=== PATIENT | male | born 1990 | race Caucasian/White ===

== ENCOUNTER 2016-12-25 02:10 | Day surgery (SDC) | payer OTHER ==
[~2016-12-25] VITALS: Ht 175.3 cm; Wt 89.9 kg
[2016-12-25 04:59] LABS: BASO # 0.1 10^3/uL (0.0-0.2); BASO % 0.3 % (0.0-1.0); EOS # 0.1 10^3/uL (0.0-0.50); EOS % 0.4 % (0.0-3.0); IMMATURE GRANULOCYTE % 0.5 % (0-0); LYMPH # 1.1 10^3/uL (1.5-6.5); LYMPH % 7.4 % (24.0-44.0); MEAN CORPUSCULAR HEMOGLOBIN 31.6 pg (27.0-33.0); MEAN CORPUSCULAR VOLUME 92.7 fl (80.0-96.0); MONO % 6.5 % (0.0-5.0); NEUTROPHILS # 13.2 10^3/uL (1.8-7.7); NEUTROPHILS % 84.9 % (36.0-66.0); PLATELET COUNT, AUTOMATED 296 10^3/uL (150-450); RED CELL DISTRIBUTION WIDTH 11.9 % (11.5-14.5); WHITE BLOOD COUNT 15.5 10^3/uL (4.0-10.0)
[2016-12-25] MEDS ORDERED: KETOROLAC 30 MG/ML VIAL (J1885) IV ONE (05:00)
[2016-12-25] MEDS ORDERED: MORPHINE 4 MG/ML 1ML SYRINGE IV ONE (05:00)
[2016-12-25] MEDS ORDERED: NS 1,000 ML IV ONE (05:00)
[2016-12-25 05:01] LABS: ANION GAP 6 MEQ/L (8-16); BLOOD UREA NITROGEN 19 MG/DL (7-18); CALCIUM LEVEL 9.3 MG/DL (8.5-10.1); CARBON DIOXIDE LEVEL 29 MEQ/L (21-32); CHLORIDE LEVEL 106 MEQ/L (98-107); CREATININE FOR GFR 1.28 MG/DL (0.70-1.30); GLOMERULAR FILTRATION RATE > 60.0 (>60); GLUCOSE, FASTING 105 MG/DL (70-105); POTASSIUM SERUM 4.6 MEQ/L (3.5-5.1); SODIUM LEVEL 141 MEQ/L (136-145)
--- NOTE | 2016-12-25 06:40 | REPUSA ---
CLINICAL HISTORY: Right-sided pain. TECHNIQUE: Multiple axial and coronal CT images were obtained through the abdomen and pelvis without administration of oral or IV contrast material. COMMENTS: Comparison to prior exam performed on 05/10/2010. The liver is of uniform attenuation without mass or defect. There is no intra or extrahepatic biliary ductal dilatation. The spleen is normal. The gallbladder is within normal limits. The pancreas is of normal contour and attenuation characteristics. There is no evidence of adrenal mass. 5.5 mm obstructing stone on the right is at L3. Moderate right hydroureteronephrosis. 3 mm right tahir l nonobstructing stone. Thickened appendix containing an appendicolith. Probably a benign chronic finding. No surrounding inf lammatory fat stranding. There is no evidence for appendicitis. There is no bowel wall thickening. No evidence for small or large bowel obstruction. There is no evidence of abdominal ascites or lymphade nopathy. There is no evidence of intrinsic or extrinsic bladder mass. There is no pelvic ascites or lymphadeno herbert. Images of the lung bases show no evidence of pleural or parenchymal mass. There are no pleural effusi ons. The bony structures are free of lytic or blastic lesions. IMPRESSION: Obstructing stone in the proximal right ureter. This was not present on prior exam. Thank you for your kind referral of this patient.
[2016-12-25] MEDS ORDERED: HYDROmorphone HCL 1 MG/ML SYRINGE (J1170) IV ONE (06:45)
[2016-12-25 07:16] VITALS: BP 139/83
[2016-12-25 07:23] VITALS: BP 139/83
[2016-12-25] MEDS ORDERED: D5W/0.45% SODIUM CHLORIDE 1,000 ML IV SCH ×2 (07:30→13:30)
[2016-12-25] MEDS ORDERED: MORPHINE 2 MG/ML 1ML SYRINGE IV PRN (07:30)
--- NOTE | 2016-12-25 08:14 | REP ---
Supine abdomen single AP view: Comparison is the CT of the abdomen and pelvis dated 12/25 2016. There is an 11 mm right ureteral calculus at the level of the L 03/04 disc space, unchanged in position from the comparison CT. There is a phlebolith inferiorly in the pelvis on the left. The bowel gas pattern is normal. Skeletal structures are unremarkable. Signed by Bakari Chapman MD 12/25/2016 08:06 A
[2016-12-25] MEDS ORDERED: CONRAY-60 60% 50ML VIAL (Q9961) As Ordered ONE (11:50)
[2016-12-25] MEDS ORDERED: METOCLOPRAMIDE INJ 10MG/2ML VIAL (J2765) As Ordered ONE (11:59)
[2016-12-25] MEDS ORDERED: ONDANSETRON 4MG/2ML VIAL (J2405) As Ordered ONE (11:59)
[2016-12-25] MEDS ORDERED: MIDAZOLAM INJ 2 MG/2 ML VIAL (J2250) As Ordered ONE (11:59)
[2016-12-25] MEDS ORDERED: PROPOFOL 200 MG/20 ML VIAL As Ordered ONE (11:59)
[2016-12-25] MEDS ORDERED: fentaNYL 100 MCG/2 ML INJECTION (J3010) As Ordered ONE (11:59)
[2016-12-25] MEDS ORDERED: LIDOCAINE 2% INJ 100 MG/5 ML SDV (FOR ANES.) As Ordered ONE (11:59)
[2016-12-25] MEDS ORDERED: OXYC1TAB23 PO (13:10)
[2016-12-25] MEDS ORDERED: PYRI1TAB5 PO (13:10)
[2016-12-25] MEDS ORDERED: BACT800T5 PO (13:10)
[2016-12-25] MEDS ORDERED: PERCOCET 5MG/325MG TAB PO PRN (13:30)
[2016-12-25] MEDS ORDERED: ONDANSETRON 4MG/2ML VIAL (J2405) IV PRN (13:30)
[2016-12-25] MEDS ORDERED: HYDROmorphone HCL 1 MG/ML SYRINGE (J1170) IV PRN (13:30)
[2016-12-25] MEDS ORDERED: fentaNYL 100 MCG/2 ML INJECTION (J3010) IV PRN (13:30)
--- NOTE | 2016-12-25 13:54 | REP ---
Retrograde pyelogram: For intraoperative fluoroscopic views are performed. Procedures performed by the urologist, Dr. Gomez. Four views are performed during placement of a right ureteral stent. Final films reveal the proximal and distal stent pigtails are in satisfactory locations. No calcifications are identified superimposed over the right kidney or right ureter on the final films. Fluoroscopic exposure time is 26 seconds. Fluoroscopic images are performed with last image hold technology. These images require no additional radiation. Signed by Bakari Chapman MD 12/25/2016 01:45 P
[2016-12-25 14:00] VITALS: BP 135/86
[2016-12-25 14:30] VITALS: BP 126/74
[2016-12-25 15:30] VITALS: BP 132/77
--- NOTE | 2016-12-25 15:43 | CR ---
DATE OF CONSULTATION: 12/25/2016 REASON FOR CONSULTATION: Right ureteral calculus with severe right flank pain. HISTORY OF PRESENT ILLNESS: The patient is a 26-year-old gentleman who came through the emergency room last night with severe right flank pain radiating to the groin. A CT scan of the abdomen and pelvis was done, and this showed a 5.5 mm proximal right ureteral obstructing stone and a 3 mm nonobstructing stone up in the right kidney. He had been given intravenous (IV) fluids and pain medication but continued to be in severe pain. A urologic consultation was requested, and it was decided to admit the patient and discuss surgical options, since he was not comfortable after pain medication. The patient did have a history of a previous kidney stone back in 2010, which passed spontaneously. He denies any gross hematuria or problems with irritative or obstructive voiding symptoms. He has had no urinary tract infections. He denies any recent nausea, vomiting, fever, or chills but just continues to have this very severe pain. PAST MEDICAL HISTORY: Denies. PAST SURGICAL HISTORY: Denies. MEDICATIONS: None. ALLERGIES: No known drug allergies. SOCIAL HISTORY: He denies smoking cigarettes. He is single. He is a weekend drinker, and it sounds like he can have at least three to four drinks at a time and possibly even more. FAMILY HISTORY: His biologic father has diabetes and heart disease, and his mother is prediabetic PHYSICAL EXAMINATION: This is a well-developed, well-nourished gentleman lying in a hospital bed but appearing quite pale and uncomfortable even after being given morphine. His maximal temperature is 98.8, pulse is 71, and his blood pressure is 139/83. His pulse oximetry is 98% on room air. His head is normocephalic, atraumatic, and his eyes are pupils equal, round, and reactive to light (PERRL). His neck is supple, and his trachea is midline. He has no significant supraclavicular or cervical adenopathy. His heart has a regular rate and rhythm, and his lungs are clear to auscultation and percussion. He does have some right costovertebral angle (CVA) tenderness, which is mild right now, and his abdomen is otherwise soft and nontender without any rebound, guarding, or masses. His extremities show no cyanosis, clubbing, or edema. REVIEW OF SYSTEMS: A 12 system review was done, and this was completely normal except for the right flank pain. He has had this pain on and off for quite some time now and was not sure what it was due to, but it became very severe that he went to the emergency room. LABORATORY DATA: A microscopic urinalysis showed 2 white blood cells and 21 red blood cells per high-power field. His white blood count is elevated at 15.5, and his hemoglobin and hematocrit are 16.1/47.3. His BUN is 19 and his creatinine is 1.28. His serum calcium is 9.3. CT scan of the abdomen and pelvis without contrast 12/25/2016 showed a 5.5 mm right proximal ureteral stone at the level of L3 and a 3 mm nonobstructing right ureteral stone and no other significant abnormalities. DISCUSSION: I discussed these findings at length with Everardo in the hospital today, and we have admitted him, and he would like to go to the operating room. We discussed that we will attempt a right ureteroscopy with laser lithotripsy, but that the stone may go back up into the kidney, and we may be unable to treat it that way. We did do a kidneys, ureter, bladder (KUB) preoperatively, and this shows the stone well, so he would be a candidate for extracorporeal shockwave lithotripsy (ESWL) on the future, which we explained to him. Also when we go in, he develops any fever, or if I see any purulent material, then the smartest thing is not to go after the stone today but to just place a ureteral stent. We discussed how ureteral stent is placed and what to expect pre and postprocedurally. He clearly understands that this would need to be removed in the future after the stone was taken care of. We discussed the major risks of the procedure, which included, but were not limited to, the risks of general anesthesia, reactions to medication, bleeding, infection, injury to the genitourinary () system, postprocedural pain from the stent, possible need for further surgical management of the stone in the future, and need for removal of the stent in the office by cystoscopic manipulation. Informed consent was obtained in both verbal and written form. IMPRESSION: 1. A 5.5 mm right proximal ureteral stone in a patient still uncomfortable after multiple doses of pain medication. 2. A 3 mm nonobstructing right renal calculi in patient who has passed stones in the past with the last one in 2010. PLAN: Bring the patient to the operating room today for a cystoscopy, attempted right ureteroscopy, laser lithotripsy, stone basketing, and right ureteral stent placement.
[2016-12-25 16:39] VITALS: BP 130/72
--- NOTE | 2016-12-26 09:17 | RO ---
DATE OF PROCEDURE: 12/25/2016 PREOPERATIVE DIAGNOSIS: 5.5 mm left proximal ureteral stone. POSTOPERATIVE DIAGNOSIS: 5.5 mm left proximal ureteral stone. PROCEDURE: Cystoscopy, right ureteroscopy, right laser lithotripsy and right double-J ureteral stent placement. SURGEON: Dr. Deepa Gomez [employer]: ANESTHESIA: General. MEDICATIONS: Ancef 2 grams preoperatively. SPECIMENS: None. DRAINS: #6-[place] Citizen universal double-J ureteral stent. FINDINGS: Stone was pushed into the lower pole of the kidney but then was able to be treated. COMPLICATIONS: Laser was not working correctly. INDICATIONS FOR PROCEDURE: The patient is a 26-year-old gentleman who came through the emergency room last night with complaints of very severe right flank pain that was not well controlled after intravenous (IV) pain medication. A CT scan had been done which showed a 5.5 mm proximal right ureteral stone. It was decided to admit the patient and bring him to the operating room for further care. All different options, alternatives, risks, and benefits were discussed and informed consent was obtained in both verbal and written form. DESCRIPTION OF PROCEDURE: The patient was brought into the operating room. Sequential compression devices were in place and preoperative antibiotics had been given with 2 grams of Ancef preoperatively. Next, general anesthesia was induced. He was then placed in the lithotomy position and careful attention was paid that his pressure points were well padded and protected. He was prepped and draped in the usual fashion. Next, a #21-[place] cystoscope was inserted. The urethra was noted to be open without any evidence of lesions or strictures. Upon entering the bladder, both ureteral orifices were seen. There was no evidence of stones, erythematous patches, lesions or other significant abnormalities. At this point, using fluoroscopy, a wire was placed in the right ureteral orifice up into the right kidney. This was left as a safety wire. A second wire was then placed and a rigid ureteroscope was passed up the ureter. The stone was seen in the proximal ureter, but unfortunately this got pushed right into the lower pole of the right kidney right away. At this point, the second wire was placed and a ureteral reentry catheter was then placed. Next, the flexible ureteroscope was passed through the ureteral reentry catheter until the stone was well seen in the lower pole of the kidney. At this point, a 200 mm laser fiber was placed but at first the laser was not working. It had been making a very funny noise when it was turned on. We tried to turn it off, turn it back on and replug in all the different parts of it. Eventually, it started to break the stone but it started to leak significant fluid. I was able to break the stone, though, into and very small fragments, and at the end of the procedure not see it at all before we had decided that it was unsafe to continue using the laser. The laser was then put out of commission. At this point, a #6-[place] universal stent was placed, and this showed an excellent curl in the right renal pelvis and in the patient's bladder. The patient's bladder was emptied, and he did have a few blood clots, so his bladder was irrigated and then emptied again. He tolerated the procedure well and was returned to the recovery room in stable condition.
== END 2016-12-25 17:20 | disposition home or self-care (01) ==
LOC: M ED 02:10 → M SDC 02:11 → UNDOADMIN 05:45 → M ED INP 05:45 → M PED 07:04 → M SDC 17:20
PROVIDERS: ATTEND Specialist
DX: N20.1 Calculus of ureter (principal)
CPT/HCPCS: 50590; 52332; 74000; 74176; 74420; 80048; 81001; 85025; 87086; 96374; 96375; 96376; 99284; C1758; C1769; C2617; J0690; J1885; J2250; J2405; J2765; J3010; Q9961